=== PATIENT | male | born 1990 | race Caucasian/White ===

== ENCOUNTER 2022-01-12 17:00 | Outpatient (CLI) | payer OTHER | END 2022-01-12 17:01 | disposition home or self-care (01) | LOC: SLEEPLAB 17:00 | PROVIDERS: ATTEND Student in an Organized Health Care Education/Training Program | DX: G47.33 Obstructive sleep apnea (adult) (pediatric) (principal); R53.83 Other fatigue; E66.9 Obesity, unspecified; K21.9 Gastro-esophageal reflux disease without esophagitis; R06.83 Snoring; I10 Essential (primary) hypertension | CPT/HCPCS: 95806 ==

== ENCOUNTER 2022-02-11 08:20 | Outpatient (CLI) | payer OTHER | END 2022-02-11 08:21 | disposition home or self-care (01) | LOC: ULT 08:20 | PROVIDERS: ATTEND Student in an Organized Health Care Education/Training Program | DX: R74.01 Elevation of levels of liver transaminase levels (principal); K76.0 Fatty (change of) liver, not elsewhere classified; R16.0 Hepatomegaly, not elsewhere classified | CPT/HCPCS: 76705 ==

== ENCOUNTER 2022-08-09 19:00 | Outpatient (CLI) | payer OTHER | END 2022-08-09 19:01 | disposition home or self-care (01) | LOC: SLEEPLAB 19:00 | PROVIDERS: ATTEND Student in an Organized Health Care Education/Training Program | DX: G47.33 Obstructive sleep apnea (adult) (pediatric) (principal); R53.83 Other fatigue; R06.83 Snoring; I10 Essential (primary) hypertension; R35.1 Nocturia; G47.10 Hypersomnia, unspecified; E66.9 Obesity, unspecified; I49.1 Atrial premature depolarization; Z68.41 Body mass index [BMI] 40.0-44.9, adult | CPT/HCPCS: 95811 ==